=== PATIENT | female | born 1980 | race African-American/Black ===

== ENCOUNTER 2022-02-09 11:53 | Emergency (ER) | payer OTHER, SELFPAY ==
[2022-02-09] VITALS (8 sets, daily range): BP systolic 106–133; BP diastolic 48–78; PULSE 76–99; RESP 14–18; TEMP 36.7; O2SAT 98–100; BMI 36.8
--- NOTE | ~2022-02-09 | XR_ITS ---
Indication: Question osteomyelitis EXAMINATION: Bilateral tib-fib this. 2 views of the right tib-fib does not demonstrate evidence for bony erosion. The tib-fib bone is felt to be intact. No suspicious periosteal change. 2 views of left tib-fib demonstrate no suspicious bony finding. No periosteal change. No bony erosion. No convincing evidence for soft tissue air XR/XR tibia fibula RT 2V IMPRESSION: No bony finding left or right tib-fib.
--- NOTE | ~2022-02-09 | US_ITS ---
EXAMINATION: US VENOUS ULTRASOUND WITH DOPPLER LOWER EXTREMITY, BILATERAL CLINICAL INFORMATION: Pain swelling in the legs with elevated d-dimer COMPARISON: None TECHNIQUE: Ultrasound of the deep veins is performed from the hip to the calf with compression sonography and color and pulse Doppler assessment. Spectral analysis with color-flow imaging is performed. FINDINGS: Exam is significantly limited due to patient body habitus. RIGHT: There is normal venous compression and respiratory variation and augmented flow. The visualized common femoral vein, superficial femoral vein, profunda femoral vein, popliteal vein shows no evidence of deep venous thrombosis. There is no significant popliteal fossa cyst. The right peroneal vein is not seen in this patient. LEFT: There is normal venous compression and respiratory variation and augmented flow. The visualized common femoral vein, superficial femoral vein, profunda femoral vein, popliteal vein, and the trifurcation region shows no evidence of deep venous thrombosis. There is no significant popliteal fossa cyst. If the patient's symptoms persist, followup ultrasound in 5 days 7 days might be of value to exclude proximal propagation from a non-visualized calf vein. US/US venous duplex LE BI IMPRESSION: No thrombus is seen bilateral lower extremities though again exam is significantly limited from patient body habitus. It should be noted the right peroneal vein is not visualized.. Correlation needs to be made clinically.
--- NOTE | ~2022-02-09 | XR_ITS ---
Indication: Question osteomyelitis EXAMINATION: Bilateral tib-fib this. 2 views of the right tib-fib does not demonstrate evidence for bony erosion. The tib-fib bone is felt to be intact. No suspicious periosteal change. 2 views of left tib-fib demonstrate no suspicious bony finding. No periosteal change. No bony erosion. No convincing evidence for soft tissue air XR/XR tibia fibula LT 2V IMPRESSION: No bony finding left or right tib-fib.
--- NOTE | ~2022-02-09 | XR_ITS ---
EXAMINATION: XR CHEST CLINICAL INFORMATION: Dyspnea. COMPARISON: None TECHNIQUE: 2 views of the chest were obtained. FINDINGS: Normal appearance of the cardiomediastinal silhouette. EKG wires overlie the chest. No focal airspace opacities, pleural effusions or pneumothorax. No acute osseous abnormalities. The visualized upper abdomen is within normal limits. XR/XR chest 2V IMPRESSION: No acute cardiopulmonary findings.
--- NOTE | ~2022-02-09 | CT_ITS ---
EXAMINATION: CT ANGIOGRAM OF THE CHEST WITH AND WITHOUT CONTRAST (CT PULMONARY ANGIOGRAM FOR PE) CLINICAL INFORMATION: Reason for Exam dyspnea, elevated ddimer COMPARISON: None TECHNIQUE: Prior to contrast administration, noncontrast localization images were obtained. Subsequently, multidetector volumetric imaging was performed from the thoracic inlet to below the diaphragms following the administration of 80 mL Omnipaque 350 intravenous contrast. No contrast reaction reported Sagittal, coronal, and MIP oblique sagittal reformatted images were obtained on the CT workstation, uploaded to PACS, and reviewed. This CT examination was performed using dose optimization techniques as appropriate, variously including the following: *Automated exposure control *Adjustment of mA and/or kV according to patient size (this includes techniques or standardized protocols for targeted exams where dose is matched to indication/reason for exam; i.e. extremities or head) *Use of iterative reconstruction technique Total exam dose-length product 369 mGy-cm FINDINGS: QUALITY OF STUDY/CONTRAST BOLUS: Satisfactory. PULMONARY ARTERIES: No central or segmental pulmonary emboli. THORACIC AORTA: No aneurysm or dissection. LUNG: The lungs are well-expanded without any acute consolidation or nodules. There is minimal atelectatic changes in the lingula. PLEURA: No pleural effusion or pneumothorax. MEDIASTINUM: The heart size is normal. There is no pericardial effusion. Suspect right hilar and subcarinal lymph node. No evidence of septal bowing or right heart strain. CHEST WALL/AXILLA: There are bilateral abnormal-sized lymph nodes in the axilla. There are bilateral moderate sized breast masses.. OSSEOUS STRUCTURES: No acute or suspicious osseous abnormality. UPPER ABDOMEN: The liver is diffusely attenuated without any focal lesion. Visualized spleen, tail of pancreas and bilateral adrenal glands are unremarkable. No reflux of contrast into the hepatic veins to suggest elevated right heart pressures. CT/CT angio chest PE protocol IMPRESSION: No evidence of PE. No evidence of aortic dissection or aneurysm. Bilateral moderate sized breast masses with abnormal size axillary lymph nodes.. Suspect right hilar lymph nodes. Recommend a mammogram and/or ultrasound exam. VTE: Negative
[2022-02-09 14:05] LABS: D Dimer High Sensitivity 356 NG/ML
--- NOTE | 2022-02-09 15:15 | ED_ITS ---
HPI - General Adult General Chief complaint: General Medical <SHERMAN De Oliveira Last Filed: 02/09/22 17:52> Stated complaint: legs swollen <SHERMAN De Oliveira Last Filed: 02/09/22 17:52> Time Seen by Provider: 02/09/22 15:10 <SHERMAN De Oliveira Last Filed: 02/09/22 17:52> Source: patient <SHERMAN De Oliveira Last Filed: 02/09/22 17:52> Mode of arrival: ambulatory <SHERMAN De Oliveira Last Filed: 02/09/22 17:52> Limitations: no limitations <SHERMAN De Oliveira Last Filed: 02/09/22 17:52> History of Present Illness HPI narrative: 41-year-old transgender female on estrogen and spironolactone presents for 1 month of bilateral leg swelling and pain. States her legs have been swollen and painful, 8/10 pain. After 1 week of leg swelling, patient started spironolactone for the last 3 weeks, hoping it would help reduce her leg swelling but it did not. Patient had COVID in July 2021, and has had wheezing and needing to use inhaler after COVID. Patient feels mildly short of breath. No chest pain. No dysuria, urinary frequency urgency, no cough, no upper respiratory symptoms, no fever, no abdominal pain, no nausea, vomiting, or diarrhea. Patient is vaccinated for COVID. <SHERMAN De Oliveira Last Filed: 02/09/22 17:52> Onset (ago): month(s) (1) <SHERMAN De Oliveira Last Filed: 02/09/22 17:52> Location: lower extremity <SHERMAN De Oliveira Last Filed: 02/09/22 17:52> Severity: moderate <SHERMAN De Oliveira Last Filed: 02/09/22 17:52> Severity scale (1-10): 8 <SHERMAN De Oliveira Last Filed: 02/09/22 17:52> Quality: aching <SHERMAN De Oliveira Last Filed: 02/09/22 17:52> Pain Consistency: constant <SHERMAN De Oliveira Last Filed: 02/09/22 17:52> Relieving factors: none <SHERMAN De Oliveira Last Filed: 02/09/22 17:52> Exacerbating factors: none <SHERMAN De Oliveira Last Filed: 02/09/22 17:52> Associated symptoms: shortness of breath <SHERMAN De Oliveira Last Filed: 02/09/22 17:52> Treatments prior to arrival: other (spironolactone) <SHERMAN De Oliveira Last Filed: 02/09/22 17:52> Related Data Home medications: Previous Rx's Medication Instructions Recorded cephalexin 500 mg capsule 500 mg PO QID 7 Days #28 cap 02/09/22 doxycycline hyclate 100 mg capsule 100 mg PO BID 7 Days #14 cap 02/09/22 ketorolac 10 mg tablet 10 mg PO TID PRN 5 Days #20 tab 02/09/22 <SHERMAN De Oliveira Last Filed: 02/09/22 17:52> Allergies/adverse reactions: Allergies Allergy/AdvReac Type Severity Reaction Status Date / Time No Known Allergies Allergy Verified 02/09/22 12:02 <SHERMAN De Oliveira Last Filed: 02/09/22 17:52> Review of Systems Constitutional: Constitutional: Denies body ache(s), Denies chills, Denies fatigue, Denies fever(s) and Denies headache(s) <SHERMAN De Oliveira Last Filed: 02/09/22 17:52> Eyes: Eyes: Denies blurry vision, Denies change in vision and Denies diplopia <SHERMAN De Oliveira Last Filed: 02/09/22 17:52> ENT: Denies dizziness, Denies otalgia, Denies headache(s), Denies nasal congestion and Denies sore throat <SHERMAN De Oliveira Last Filed: 02/09/22 17:52> Cardiovascular: Cardiovascular: Denies chest pain, Denies chest pain at rest, Denies Epigastric Pain and Reports dyspnea <SHERMAN De Oliveira Last Filed: 02/09/22 17:52> Respiratory: Respiratory: Denies chest congestion, Denies cough, Denies pain on inspiration, Denies pain with cough and Reports dyspnea <SHERMAN Saldana Last Filed: 02/09/22 17:52> Gastrointestinal: Gastrointestinal: Denies abdominal pain, Denies melena, Denies coffee ground emesis, Denies diarrhea, Denies nausea, Denies vomiting and Denies hematemesis <SHERMAN De Oliveira Last Filed: 02/09/22 17:52> Genitourinary: Genitourinary: Denies dysuria, Denies urinary incontinence and Denies urinary hesitancy <SHERMAN De Oliveira Last Filed: 02/09/22 17:52> Musculoskeletal: Comments: Bilateral leg pain and swelling <SHERMAN De Oliveira Last Filed: 02/09/22 17:52> Integumentary/Breasts: Skin/Breast: Reports swelling, Reports erythema and Reports skin swelling <SHERMAN De Oliveira Last Filed: 02/09/22 17:52> Neurologic: Denies Abnormal speech present, Denies dizziness, Denies headache(s) and Denies Sensory deficit (Neuro) <SHERMAN De Oliveira Last Filed: 02/09/22 17:52> Endocrine: Endocrine: Denies fatigue <SHERMAN De Oliveira Last Filed: 02/09/22 17:52> [facility] Social History Social History: Social History Alcohol intake: never Patient Tobacco Use Status: Current everyday Tobacco user Use of substances other than those prescribed or required for medical reasons: No Advance Directives: No Advance Directives Information Provided: No <SHERMAN De Oliveira Last Filed: 02/09/22 17:52> Physical Exam ED Vital Signs: Vital Signs - 24 hr 02/09/22 11:57 02/09/22 16:33 02/09/22 18:49 Temperature 98.1 F Pulse Rate 99 80 76 Respiratory Rate 18 18 18 Blood Pressure 133/78 115/73 106/63 Pulse Oximetry 100 98 100 02/09/22 19:34 02/09/22 19:50 02/09/22 19:51 Temperature Pulse Rate 79 79 Respiratory Rate 14 15 15 Blood Pressure 126/77 126/77 Pulse Oximetry 99 02/09/22 20:57 02/09/22 21:26 Temperature Pulse Rate 81 77 Respiratory Rate 15 14 Blood Pressure 108/48 L Pulse Oximetry 100 BMI result Body Mass Index 36.8 <SHERMAN De Oliveira Last Filed: 02/09/22 17:52> Vital Signs - 24 hr 02/09/22 11:57 02/09/22 16:33 02/09/22 18:49 Temperature 98.1 F Pulse Rate 99 80 76 Respiratory Rate 18 18 18 Blood Pressure 133/78 115/73 106/63 Pulse Oximetry 100 98 100 02/09/22 19:34 02/09/22 19:50 02/09/22 19:51 Temperature Pulse Rate 79 79 Respiratory Rate 14 15 15 Blood Pressure 126/77 126/77 Pulse Oximetry 99 02/09/22 20:57 02/09/22 21:26 Temperature Pulse Rate 81 77 Respiratory Rate 15 14 Blood Pressure 108/48 L Pulse Oximetry 100 BMI result Body Mass Index 36.8 <SHERMAN Vogel - Last Filed: 02/09/22 21:28> Const General: alert and awake <SHERMAN De Oliveira - Last Filed: 02/09/22 17:52> Nutritional Appearance: obese centrally obese <SHERMAN De Oliveira Last Filed: 02/09/22 17:52> Orientation/consciousness: patient oriented x3 <SHERMAN De Oliveira - Last Filed: 02/09/22 17:52> Limitations: no limitations <SHERMAN De Oliveira Last Filed: 02/09/22 17:52> H[place]UT Head: Yes normal to inspection, Yes No palpable skull fracture present, Yes normocephalic and Yes atraumatic <SHREMAN De Oliveira Last Filed: 02/09/22 17:52> General nose exam: Normal external nose present <SHERMAN De Oliveira Last Filed: 02/09/22 17:52> Face and sinus: Yes normal facial exam <SHERMAN De Oliveira Last Filed: 02/09/22 17:52> Mouth: Normal oral and palatal mucosa present <SHERMAN De Oliveira Last Filed: 02/09/22 17:52> Throat: Yes posterior oropharynx normal <SHERMAN De Oliveira Last Filed: 02/09/22 17:52> Eyes Sclerae: sclerae normal <SHERMAN De Oliveira Last Filed: 02/09/22 17:52> Pupils: Equal, round and reactive pupils present <SHERMAN De Oliveira - Last Filed: 02/09/22 17:52> EOM: EOMs intact bilaterally <Ning Sutton [facility] Last Filed: 02/09/22 17:52> Neck Neck: Yes normal visual inspection, Yes full ROM, Yes no lymphadenopathy, Yes no meningeal signs, Yes trachea midline and Yes supple <Ning Sutton [facility] Last Filed: 02/09/22 17:52> Resp Effort & Inspection: normal respiratory effort and able to speak in complete sentences <Ning Sutton [facility] Last Filed: 02/09/22 17:52> Auscultation: no rales, no rhonchi, wheezes (scatterred) expiratory wheezes and throughout and lung sounds not diminished <Ning Sutton [facility] Last Filed: 02/09/22 17:52> Cardio Rate: regular rate <Ning Sutton [facility] Last Filed: 02/09/22 17:52> Rhythm: regular rhythm <Ning Sutton [facility] Last Filed: 02/09/22 17:52> Heart sounds: S1 normal heart sound present and S2 normal heart sound present <Ning Sutton [facility] Last Filed: 02/09/22 17:52> GI Inspection: Yes obesity <Ning Sutton [facility] Last Filed: 02/09/22 17:52> Palpation (GI): Soft to palpation, nontender, no guarding and not rigid <Ning Sutton [facility] Last Filed: 02/09/22 17:52> Percussion: Yes normal to percussion <Ning Sutton [facility] Last Filed: 02/09/22 17:52> Auscultation: normal bowel sounds <Ning Sutton [facility] Last Filed: 02/09/22 17:52> General: Yes no CVA tenderness <Ning Sutton [facility] Last Filed: 02/09/22 17:52> Back/Spine/Pelvis Back: no CVA tenderness <Ning Sutton [facility] Last Filed: 02/09/22 17:52> Skin Other: Shiny Hernandez skin, on bilateral lower extremities, left leg has some anterior abrasions and is more red and warm than right leg. <Ning Sutton [facility] Last Filed: 02/09/22 17:52> General skin exam: erythema and induration <SHERMAN De Oliveira - Last Filed: 02/09/22 17:52> Neuro General: patient oriented x3, tone normal and no meningeal signs <SHERMAN De Oliveira - Last Filed: 02/09/22 17:52> Cranial nerves: Yes Equal, round and reactive pupils present <SHERMAN De Oliveira - Last Filed: 02/09/22 17:52> Cognition (Neuro): normal cognition <SHERMAN De Oliveira - Last Filed: 02/09/22 17:52> Speech: No Abnormal speech present <SHERMAN De Oliveira - Last Filed: 02/09/22 17:52> Gait exam (Neuro): Normal gait present <SHERMAN De Oliveira - Last Filed: 02/09/22 17:52> Motor exam (neuro): 5/5 motor strength present throughout <SHERMAN De Oliveira - Last Filed: 02/09/22 17:52> Sensory Exam: No Sensory deficit (Neuro) <SHERMAN De Oliveira - Last Filed: 02/09/22 17:52> Extrem Right lower extremity: normal capillary refill and lower leg Details: tenderness, pitting edema Details: 2+ and warmth Location: of the mid lower leg; Negative for no ecchymosis and no crepitus; No no cyanosis <SHERMAN De Oliveira - Last Filed: 02/09/22 17:52> Left lower extremity: normal capillary refill and lower leg Details: erythema, tenderness, pitting edema Details: 2+, abrasion mid lower leg anterior and warmth; No no cyanosis <SHERMAN De Oliveira Last Filed: 02/09/22 17:52> Psych Appearance: grossly normal <SHERMAN De Oliveira Last Filed: 02/09/22 17:52> Mental Status: mental status grossly normal <SHERMAN De Oliveira - Last Filed: 02/09/22 17:52> Speech and movement: Normal speech and movement present <SHERMAN De Oliveira Last Filed: 02/09/22 17:52> Affect: normal affect <SHERMAN De Oliveira Last Filed: 02/09/22 17:52> Course Course Course Narrative: 41-year-old transgender female presents with 1 week of bilateral lower extremities swelling, pain, and mild shortness of breath. Patient is on estrogen. On exam, patient has mild scattered wheezes on lung auscultation, abdomen soft nontender, bilateral lower extremities have +2 pitting edema, shiny skin, induration, both are warm and erythematous, left anterior loaiza has abrasions and left calf is more erythematous and warm than right calf. CBC shows no leukocytosis, chemistries unremarkable, patient has a elevated D- dimer at 356. Urine is negative for infection Patient is at risk for thromboembolism given her estrogen use. In addition, D- dimer is elevated. Will get bilateral lower extremity ultrasound, CTA chest to rule out DVT and PE. <SHERMAN De Oliveira - Last Filed: 02/09/22 17:52> Reevaluation(s) Reevaluation #1: Patient is feeling less short of breath after her albuterol treatment. Her chest x-ray looks normal to me, it is not officially read yet. Still shirley iting BNP and troponin. Patient's labs hemolyzed and she needs to be redrawn for trop and BNP Her IV infiltrated so she did not get much morphine. EKG shows normal sinus node ischemic changes. Patient is COVID negative. Ordered Tylenol for pain. Signed pt out to JIMENA Buatista Awaiting ultrasound and CTA results, LFT, BNP, and troponin, as weel as official CXR read <SHERMAN De Oliveira - Last Filed: 02/09/22 17:52> Reevaluation #2: Patient bilateral ultrasound came back negative blood clots. Bilateral lower extremity x-ray negative for osteomyelitis. Chest CTA came back negative for pulmonary embolus. Bilateral lower extremities examined and they are warm and erythematous to indicate cellulitis. Negative for any white blood cell count or elevation in ESR/CRP. Negative for elevated BNP to indicate congestive heart failure. Patient will be discharged with antibiotics and pain medication. <SHERMAN Vogel - Last Filed: 02/09/22 21:28> Time: 21:17 <SHERMAN Vogel - Last Filed: 02/09/22 21:28> Medical Decision Making Lab Data Result diagrams: : 02/09/22 15:10 02/09/22 15:10 <SHERMAN De Oliveira Last Filed: 02/09/22 17:52> Labs: Lab Results 02/09/22 02/09/22 02/09/22 Range/Units 13:50 15:10 15:10 WBC 7.3 (4.8-10.8) X10*3/uL RBC 3.83 L (4.20-5.50) X10*6/uL Hgb 11.5 L (12.0-16.0) g/dl Hct 33.4 L (37.0-47.0) % MCV 87.2 (80.0-98.0) fL MCH 30.0 (27.0-33.0) pg MCHC 34.4 (31.0-35.0) g/dl RDW 13.3 (11.0-16.0) % Plt Count 268 (160-400) X10*3/uL MPV 8.7 L (9.4-12.3) fL Immature Gran % (Auto) 0.3 (0.0-0.4) % Neut % (Auto) 52.9 (45-73) % Lymph % (Auto) 24.8 (20-40) % [place] % (Auto) 9.4 (2-11) % Eos % (Auto) 11.9 H (0-4) % Baso % (Auto) 0.7 (0-2) % Lymph # (Auto) 1.8 (1.2-4.9) X10*3/uL [place] # (Auto) 0.7 (0.1-1.2) X10*3/uL Eos # (Auto) 0.9 H (0.0-0.4) X10*3/uL Baso # (Auto) 0.1 (0.0-0.2) X10*3/uL Abs Immat Gran (auto) 0.02 (0.00-0.03) X10*3/uL Absolute Neuts (auto) 3.9 (2.0-8.3) x10*3/uL Absolute Nucleated RBC 0.000 (0.0-0.012) X10*3/uL Nucleated RBC % (auto) 0.0 (0.0-0.2) /100WBC ESR (0-20) MM/HR D-Dimer High Sensitivty 356 NG/ML Sodium 136 (135-145) mmol/L Potassium 4.2 (3.3-5.1) mmol/L Chloride 105 (96-108) mmol/L Carbon Dioxide 25 (22-29) mmol/L Anion Gap 10 L (12-20) BUN 10 (9-16) mg/dL Creatinine 0.78 (0.5-1.4) mg/dL Estim Creat Clear Calc 142.5 Estimated GFR > 60 Random Glucose 91 (60-115) mg/dL Calcium 9.3 (8.4-10.2) mg/dL Total Bilirubin AST ALT Alkaline Phosphatase Troponin I High Sens (<3.5-17.0) ng/L C-Reactive Protein 1.62 H (< or = 0.50) mg/dL B-Natriuretic Peptide (<100) pg/mL Total Protein Albumin Urine Color Urine Appearance Urine pH (5.0-8.0) Ur Specific [place] (1.005-1.025) Urine Protein (NEG-TRACE) MG/DL Urine Glucose (UA) (NEG) MG/DL Urine Ketones (NEG) MG/DL Urine Blood (NEG) Urine Nitrite (NEG) Ur Leukocyte Esterase (NEG) COVID-19 (SUSAN) (Negative) COVID-19 Clin Com 02/09/22 02/09/22 02/09/22 Range/Units 15:10 15:13 16:32 WBC (4.8-10.8) X10*3/uL RBC (4.20-5.50) X10*6/uL Hgb (12.0-16.0) g/dl Hct (37.0-47.0) % MCV (80.0-98.0) fL MCH (27.0-33.0) pg MCHC (31.0-35.0) g/dl RDW (11.0-16.0) % Plt Count (160-400) X10*3/uL MPV (9.4-12.3) fL Immature Gran % (Auto) (0.0-0.4) % Neut % (Auto) (45-73) % Lymph % (Auto) (20-40) % [place] % (Auto) (2-11) % Eos % (Auto) (0-4) % Baso % (Auto) (0-2) % Lymph # (Auto) (1.2-4.9) X10*3/uL [place] # (Auto) (0.1-1.2) X10*3/uL Eos # (Auto) (0.0-0.4) X10*3/uL Baso # (Auto) (0.0-0.2) X10*3/uL Abs Immat Gran (auto) (0.00-0.03) X10*3/uL Absolute Neuts (auto) (2.0-8.3) x10*3/uL Absolute Nucleated RBC (0.0-0.012) X10*3/uL Nucleated RBC % (auto) (0.0-0.2) /100WBC ESR 18 (0-20) MM/HR D-Dimer High Sensitivty NG/ML Sodium Cancelled (135-145) mmol/L Potassium Cancelled (3.3-5.1) mmol/L Chloride Cancelled (96-108) mmol/L Carbon Dioxide Cancelled (22-29) mmol/L Anion Gap Cancelled (12-20) BUN Cancelled (9-16) mg/dL Creatinine Cancelled (0.5-1.4) mg/dL Estim Creat Clear Calc Cancelled Estimated GFR Cancelled Random Glucose Cancelled (60-115) mg/dL Calcium Cancelled (8.4-10.2) mg/dL Total Bilirubin Cancelled AST Cancelled ALT Cancelled Alkaline Phosphatase Cancelled Troponin I High Sens (<3.5-17.0) ng/L C-Reactive Protein (< or = 0.50) mg/dL B-Natriuretic Peptide (<100) pg/mL Total Protein Cancelled Albumin Cancelled Urine Color YELLOW Urine Appearance CLEAR Urine pH 6.5 (5.0-8.0) Ur Specific [place] 1.015 (1.005-1.025) Urine Protein NEG (NEG-TRACE) MG/DL Urine Glucose (UA) NEG (NEG) MG/DL Urine Ketones NEG (NEG) MG/DL Urine Blood NEG (NEG) Urine Nitrite NEG (NEG) Ur Leukocyte Esterase NEG (NEG) COVID-19 (SUSAN) (Negative) COVID-19 Clin Com 02/09/22 02/09/22 Range/Units 16:32 19:02 WBC (4.8-10.8) X10*3/uL RBC (4.20-5.50) X10*6/uL Hgb (12.0-16.0) g/dl Hct (37.0-47.0) % MCV (80.0-98.0) fL MCH (27.0-33.0) pg MCHC (31.0-35.0) g/dl RDW (11.0-16.0) % Plt Count (160-400) X10*3/uL MPV (9.4-12.3) fL Immature Gran % (Auto) (0.0-0.4) % Neut % (Auto) (45-73) % Lymph % (Auto) (20-40) % [place] % (Auto) (2-11) % Eos % (Auto) (0-4) % Baso % (Auto) (0-2) % Lymph # (Auto) (1.2-4.9) X10*3/uL [place] # (Auto) (0.1-1.2) X10*3/uL Eos # (Auto) (0.0-0.4) X10*3/uL Baso # (Auto) (0.0-0.2) X10*3/uL Abs Immat Gran (auto) (0.00-0.03) X10*3/uL Absolute Neuts (auto) (2.0-8.3) x10*3/uL Absolute Nucleated RBC (0.0-0.012) X10*3/uL Nucleated RBC % (auto) (0.0-0.2) /100WBC ESR (0-20) MM/HR D-Dimer High Sensitivty NG/ML Sodium (135-145) mmol/L Potassium (3.3-5.1) mmol/L Chloride (96-108) mmol/L Carbon Dioxide (22-29) mmol/L Anion Gap (12-20) BUN (9-16) mg/dL Creatinine (0.5-1.4) mg/dL Estim Creat Clear Calc Estimated GFR Random Glucose (60-115) mg/dL Calcium (8.4-10.2) mg/dL Total Bilirubin AST ALT Alkaline Phosphatase Troponin I High Sens < 3.5 (<3.5-17.0) ng/L C-Reactive Protein (< or = 0.50) mg/dL B-Natriuretic Peptide 21 (<100) pg/mL Total Protein Albumin Urine Color Urine Appearance Urine pH (5.0-8.0) Ur Specific [place] (1.005-1.025) Urine Protein (NEG-TRACE) MG/DL Urine Glucose (UA) (NEG) MG/DL Urine Ketones (NEG) MG/DL Urine Blood (NEG) Urine Nitrite (NEG) Ur Leukocyte Esterase (NEG) COVID-19 (SUSAN) Negative (Negative) COVID-19 Clin Com See Note <SHERMAN De Oliveira - Last Filed: 02/09/22 17:52> Lab Results 02/09/22 02/09/22 02/09/22 Range/Units 13:50 15:10 15:10 WBC 7.3 (4.8-10.8) X10*3/uL RBC 3.83 L (4.20-5.50) X10*6/uL Hgb 11.5 L (12.0-16.0) g/dl Hct 33.4 L (37.0-47.0) % MCV 87.2 (80.0-98.0) fL MCH 30.0 (27.0-33.0) pg MCHC 34.4 (31.0-35.0) g/dl RDW 13.3 (11.0-16.0) % Plt Count 268 (160-400) X10*3/uL MPV 8.7 L (9.4-12.3) fL Immature Gran % (Auto) 0.3 (0.0-0.4) % Neut % (Auto) 52.9 (45-73) % Lymph % (Auto) 24.8 (20-40) % [place] % (Auto) 9.4 (2-11) % Eos % (Auto) 11.9 H (0-4) % Baso % (Auto) 0.7 (0-2) % Lymph # (Auto) 1.8 (1.2-4.9) X10*3/uL [place] # (Auto) 0.7 (0.1-1.2) X10*3/uL Eos # (Auto) 0.9 H (0.0-0.4) X10*3/uL Baso # (Auto) 0.1 (0.0-0.2) X10*3/uL Abs Immat Gran (auto) 0.02 (0.00-0.03) X10*3/uL Absolute Neuts (auto) 3.9 (2.0-8.3) x10*3/uL Absolute Nucleated RBC 0.000 (0.0-0.012) X10*3/uL Nucleated RBC % (auto) 0.0 (0.0-0.2) /100WBC ESR (0-20) MM/HR D-Dimer High Sensitivty 356 NG/ML Sodium 136 (135-145) mmol/L Potassium 4.2 (3.3-5.1) mmol/L Chloride 105 (96-108) mmol/L Carbon Dioxide 25 (22-29) mmol/L Anion Gap 10 L (12-20) BUN 10 (9-16) mg/dL Creatinine 0.78 (0.5-1.4) mg/dL Estim Creat Clear Calc 142.5 Estimated GFR > 60 Random Glucose 91 (60-115) mg/dL Calcium 9.3 (8.4-10.2) mg/dL Total Bilirubin AST ALT Alkaline Phosphatase Troponin I High Sens (<3.5-17.0) ng/L C-Reactive Protein 1.62 H (< or = 0.50) mg/dL B-Natriuretic Peptide (<100) pg/mL Total Protein Albumin Urine Color Urine Appearance Urine pH (5.0-8.0) Ur Specific [place] (1.005-1.025) Urine Protein (NEG-TRACE) MG/DL Urine Glucose (UA) (NEG) MG/DL Urine Ketones (NEG) MG/DL Urine Blood (NEG) Urine Nitrite (NEG) Ur Leukocyte Esterase (NEG) COVID-19 (SUSAN) (Negative) COVID-19 Clin Com 02/09/22 02/09/22 02/09/22 Range/Units 15:10 15:13 16:32 WBC (4.8-10.8) X10*3/uL RBC (4.20-5.50) X10*6/uL Hgb (12.0-16.0) g/dl Hct (37.0-47.0) % MCV (80.0-98.0) fL MCH (27.0-33.0) pg MCHC (31.0-35.0) g/dl RDW (11.0-16.0) % Plt Count (160-400) X10*3/uL MPV (9.4-12.3) fL Immature Gran % (Auto) (0.0-0.4) % Neut % (Auto) (45-73) % Lymph % (Auto) (20-40) % [place] % (Auto) (2-11) % Eos % (Auto) (0-4) % Baso % (Auto) (0-2) % Lymph # (Auto) (1.2-4.9) X10*3/uL [place] # (Auto) (0.1-1.2) X10*3/uL Eos # (Auto) (0.0-0.4) X10*3/uL Baso # (Auto) (0.0-0.2) X10*3/uL Abs Immat Gran (auto) (0.00-0.03) X10*3/uL Absolute Neuts (auto) (2.0-8.3) x10*3/uL Absolute Nucleated RBC (0.0-0.012) X10*3/uL Nucleated RBC % (auto) (0.0-0.2) /100WBC ESR 18 (0-20) MM/HR D-Dimer High Sensitivty NG/ML Sodium Cancelled (135-145) mmol/L Potassium Cancelled (3.3-5.1) mmol/L Chloride Cancelled (96-108) mmol/L Carbon Dioxide Cancelled (22-29) mmol/L Anion Gap Cancelled (12-20) BUN Cancelled (9-16) mg/dL Creatinine Cancelled (0.5-1.4) mg/dL Estim Creat Clear Calc Cancelled Estimated GFR Cancelled Random Glucose Cancelled (60-115) mg/dL Calcium Cancelled (8.4-10.2) mg/dL Total Bilirubin Cancelled AST Cancelled ALT Cancelled Alkaline Phosphatase Cancelled Troponin I High Sens (<3.5-17.0) ng/L C-Reactive Protein (< or = 0.50) mg/dL B-Natriuretic Peptide (<100) pg/mL Total Protein Cancelled Albumin Cancelled Urine Color YELLOW Urine Appearance CLEAR Urine pH 6.5 (5.0-8.0) Ur Specific [place] 1.015 (1.005-1.025) Urine Protein NEG (NEG-TRACE) MG/DL Urine Glucose (UA) NEG (NEG) MG/DL Urine Ketones NEG (NEG) MG/DL Urine Blood NEG (NEG) Urine Nitrite NEG (NEG) Ur Leukocyte Esterase NEG (NEG) COVID-19 (SUSAN) (Negative) COVID-19 Clin Com 02/09/22 02/09/22 Range/Units 16:32 19:02 WBC (4.8-10.8) X10*3/uL RBC (4.20-5.50) X10*6/uL Hgb (12.0-16.0) g/dl Hct (37.0-47.0) % MCV (80.0-98.0) fL MCH (27.0-33.0) pg MCHC (31.0-35.0) g/dl RDW (11.0-16.0) % Plt Count (160-400) X10*3/uL MPV (9.4-12.3) fL Immature Gran % (Auto) (0.0-0.4) % Neut % (Auto) (45-73) % Lymph % (Auto) (20-40) % [place] % (Auto) (2-11) % Eos % (Auto) (0-4) % Baso % (Auto) (0-2) % Lymph # (Auto) (1.2-4.9) X10*3/uL [place] # (Auto) (0.1-1.2) X10*3/uL Eos # (Auto) (0.0-0.4) X10*3/uL Baso # (Auto) (0.0-0.2) X10*3/uL Abs Immat Gran (auto) (0.00-0.03) X10*3/uL Absolute Neuts (auto) (2.0-8.3) x10*3/uL Absolute Nucleated RBC (0.0-0.012) X10*3/uL Nucleated RBC % (auto) (0.0-0.2) /100WBC ESR (0-20) MM/HR D-Dimer High Sensitivty NG/ML Sodium (135-145) mmol/L Potassium (3.3-5.1) mmol/L Chloride (96-108) mmol/L Carbon Dioxide (22-29) mmol/L Anion Gap (12-20) BUN (9-16) mg/dL Creatinine (0.5-1.4) mg/dL Estim Creat Clear Calc Estimated GFR Random Glucose (60-115) mg/dL Calcium (8.4-10.2) mg/dL Total Bilirubin AST ALT Alkaline Phosphatase Troponin I High Sens < 3.5 (<3.5-17.0) ng/L C-Reactive Protein (< or = 0.50) mg/dL B-Natriuretic Peptide 21 (<100) pg/mL Total Protein Albumin Urine Color Urine Appearance Urine pH (5.0-8.0) Ur Specific [place] (1.005-1.025) Urine Protein (NEG-TRACE) MG/DL Urine Glucose (UA) (NEG) MG/DL Urine Ketones (NEG) MG/DL Urine Blood (NEG) Urine Nitrite (NEG) Ur Leukocyte Esterase (NEG) COVID-19 (SUSAN) Negative (Negative) COVID-19 Clin Com See Note <SHERMAN Vogel - Last Filed: 02/09/22 21:28> ECG Data Interpretation: EKG shows normal sinus at a rate of 74, IL interval 176, QRS 82, QTC 432, normal axis, no ST depressions or elevations, no T-wave abnormalities. <SHERMAN De Oliveira - Last Filed: 02/09/22 17:52> Discharge Plan Discharge Clinical Impression: Leg swelling, Cellulitis <SHERMAN De Oliveira - Last Filed: 02/09/22 17:52> Patient Disposition: Home, Self-Care <SHERMAN De Oliveira - Last Filed: 02/09/22 17:52> Instructions: Cellulitis (DC) <SHERMAN De Oliveira - Last Filed: 02/09/22 17:52> Additional Instructions: You're images and blood work came back negative for heart failure, heart attack, pulmonary embolus, or DVT. History physical exam indicates cellulitis. You will be discharged with antibiotics and pain medication. Please follow-up with primary care provider <SHERMAN De Oliveira - Last Filed: 02/09/22 17:52> Prescriptions: New cephalexin 500 mg capsule 500 mg PO QID 7 Days Qty: 28 0RF doxycycline hyclate 100 mg capsule 100 mg PO BID 7 Days Qty: 14 0RF ketorolac 10 mg tablet 10 mg PO TID PRN (Reason: pain) 5 Days Qty: 20 0RF Rx Instructions: Patient received Toradol 30 mg IV in the ED <SHERMAN De Oliveira - Last Filed: 02/09/22 17:52> Stand Alone Forms: Work/School Release <SHERMAN De Oliveira - Last Filed: 02/09/22 17:52> Discharge Date/Time: 02/09/22 21:38 <SHERMAN De Oliveira - Last Filed: 02/09/22 17:52> Print Language: Faroese <SHERMAN De Oliveira - Last Filed: 02/09/22 17:52>
[2022-02-09 15:17] LABS: MANUAL DIFF FLAG NO
[2022-02-09 15:20] LABS: Appearance Urine CLEAR; Color Urine YELLOW; Glucose Urine UA NEG (NEG); Leukocyte Esterase Urine NEG (NEG); Nitrite Urine NEG (NEG); PH 6.5 (5.0-8.0); Specific Gravity - Urine 1.015 (1.005-1.025); Urine Blood NEG (NEG); Urine Ketones NEG (NEG); Urine Protein NEG (NEG-TRACE)
[2022-02-09 15:22] LABS: Basophils Absolute Auto 0.1 X10*3/uL (0.0-0.2); Basophils Percent Auto 0.7 % (0-2); Eosinophils Absolute Auto 0.9 X10*3/uL (0.0-0.4); Eosinophils Percent Auto 11.9 % (0-4); Hematocrit 33.4 % (37.0-47.0); Hemoglobin 11.5 g/dl (12.0-16.0); Imm Gran Abs Auto 0.02 X10*3/uL (0.00-0.03); Imm Gran Pct Auto 0.3 % (0.0-0.4); Lymphocytes Absolute Auto 1.8 X10*3/uL (1.2-4.9); Lymphocytes Percent Auto 24.8 % (20-40); Mean Corpuscular HGB Conc 34.4 g/dl (31.0-35.0); Mean Corpuscular Volume 87.2 fL (80.0-98.0); Mean Platelet Volume 8.7 fL (9.4-12.3); Monocytes Absolute Auto 0.7 X10*3/uL (0.1-1.2); Monocytes Percent Auto 9.4 % (2-11); Neutrophils Absolute Auto 3.9 x10*3/uL (2.0-8.3); Neutrophils Percent Auto 52.9 % (45-73); Platelet Count 268 X10*3/uL (160-400); Red Blood Count 3.83 X10*6/uL (4.20-5.50); Red Cell Distribution Width 13.3 % (11.0-16.0); White Blood Count 7.3 X10*3/uL (4.8-10.8)
--- NOTE | 2022-02-09 15:32 | ECG_ITS ---
Test Reason : DYSPENA Blood Pressure : / mmHG Vent. Rate : 074 BPM Atrial Rate : 074 BPM P-R Int : 178 ms QRS Dur : 082 ms QT Int : 390 ms P-R-T Axes : 063 020 005 degrees QTc Int : 432 ms Normal sinus rhythm Normal ECG No previous ECGs available Referred By: Ning Sutton Electronically Signed By:YULY ONOFRE MD
[2022-02-09 15:40] LABS: Anion Gap 10 (12-20); Blood Urea Nitrogen 10 mg/dL (9-16); Calcium 9.3 mg/dL (8.4-10.2); Carbon Dioxide 25 mmol/L (22-29); Chloride 105 mmol/L (96-108); Creatinine Clr Calc Pharmacy 142.5; Estimated Glomerular Filt Rate > 60; Glucose Random 91 mg/dL (60-115); Potassium 4.2 mmol/L (3.3-5.1); Sodium 136 mmol/L (135-145)
--- NOTE | 2022-02-09 16:35 | PC.NURSE ---
c.o ble pain and swelling.. FARNSWORTH. taught swelling bLE and painful to touch. no sob noted. nsr on monitor. denies cp
[2022-02-09] MEDS: Morphine Sulfate 4 MG/ML CARTRIDGE IVPUSH ×2 (16:47→19:50)
[2022-02-09] MEDS: 0.9 % Sodium Chloride 1,000 ML 999 ML IV (16:47)
[2022-02-09] MEDS: Albuterol Sulfate 90 MCG 8 GM INHALER 2 PUFF INHALE (16:47)
[2022-02-09 16:58] LABS: COVID-19 Test Negative (Negative)
--- NOTE | 2022-02-09 18:14 | PC.NURSE ---
iv infiltrated at CT. Pt has had mult attempts for a line, now SHERMAN June at bedside with Ultrasound.
[2022-02-09 18:24] LABS: C Reactive Protein 1.62 mg/dL (< or = 0.50)
[2022-02-09 19:05] LABS: Erythrocyte Sedimentation Rate 18 MM/HR (0-20)
[2022-02-09] MEDS: iohexoL 350 MG/ML 100 ML INFUS..BTL IV (19:23)
[2022-02-09 19:27] LABS: B Type Natriuretic Peptide 21 pg/mL (<100); Troponin-I High Sensitivity < 3.5 ng/L (<3.5-17.0)
[2022-02-09] MEDS: Ketorolac Tromethamine 30 MG/ML VIAL IVPUSH (21:24)
== END 2022-02-09 21:38 | disposition home or self-care (01) ==
PROVIDERS: Physician Assistant; Emergency Provider Emergency Medicine
DX: L03.115 Cellulitis of right lower limb (principal); M79.661 Pain in right lower leg; L03.116 Cellulitis of left lower limb; M79.662 Pain in left lower leg; R06.02 Shortness of breath; R60.0 Localized edema; Z20.822 Contact with and (suspected) exposure to COVID-19; F64.0 Transsexualism; F17.200 Nicotine dependence, unspecified, uncomplicated; Z79.890 Hormone replacement therapy
CPT/HCPCS: 36415; 71046; 71275; 73590; 80048; 81003; 83880; 84484; 85025; 85379; 85652; 86140; 87635; 93005; 93970; 96361; 96374; 96375; 96376; 99284; 99285; J1885; J2270; Q9967

== ENCOUNTER 2022-05-26 14:52 | Emergency (ER) | payer OTHER, SELFPAY ==
[2022-05-26 15:12] VITALS: BP 131/86; PULSE 93; RESP 18; TEMP 36.2; O2SAT 97; BMI 36.6
[2022-05-26 15:27] LABS: Appearance Urine CLEAR; Color Urine YELLOW; Glucose Urine UA NEG (NEG); Leukocyte Esterase Urine NEG (NEG); Nitrite Urine NEG (NEG); PH 5.5 (5.0-8.0); Specific Gravity - Urine <= 1.005 (1.005-1.025); Urine Blood NEG (NEG); Urine Ketones NEG (NEG); Urine Protein NEG (NEG-TRACE)
--- NOTE | 2022-05-26 16:02 | ED_ITS ---
HPI - Female Genitourinary General Chief complaint: Urogenital-Female Stated complaint: Requesting urine test Time Seen by Provider: 05/26/22 16:02 History of Present Illness HPI Narrative: Patient comes with the complaint that she thinks her urine is dark and is concerned this could be a sign of a liver problem, she has no stomach pain no problem eating and drinking no fever no jaundice no nausea vomiting or diarrhea Related Data Previous Rx's Medication Instructions Recorded cephalexin 500 mg capsule 500 mg PO QID 7 days #28 caps 02/09/22 doxycycline hyclate 100 mg capsule 100 mg PO BID 7 days #14 caps 02/09/22 ketorolac 10 mg tablet 10 mg PO TID PRN pain 5 days #20 02/09/22 tabs Allergies Allergy/AdvReac Type Severity Reaction Status Date / Time No Known Allergies Allergy Verified 02/09/22 12:02 Review of Systems Review of Systems: Positive for change in urine color Negatives are no fever no chills no dizziness or weakness no fainting no feeling faint no headache no neck pain no chest pain no shortness of breath no abdominal pain no nausea vomiting or diarrhea no dysuria no frequency no blood in the urine no skin rash no jaundice Yes all other systems are reviewed and are negative PMFSH Past Medical History Source: nursing notes reviewed Social History Social History Alcohol intake: never Patient Tobacco Use Status: Current everyday Tobacco user Advance Directives: No Advance Directives Information Provided: No Physical Exam Vital Signs: Vital Signs: Last Vital Signs Temp 97.2 F 05/26/22 15:12 Pulse 93 05/26/22 15:12 Resp 18 05/26/22 15:12 BP 131/86 05/26/22 15:12 Pulse Ox 97 05/26/22 15:12 O2 Del Method 05/26/22 15:12 BMI result Body Mass Index 36.6 General appearance no distress Eyes are anicteric no pallor The pharynx no redness swelling or exudate mucous membranes are moist Neck is supple Chest clear to auscultation bilateral Heart no murmur Abdomen soft nontender Extremities no edema full range of motion x4 Skin no jaundice Course Course Course Narrative: Labs showed minor AST and ALT elevations, otherwise normal no evidence of any liver disfunction ,bilirubin was normal ,urinalysis was normal blood count was normal renal function normal and patient was discharged to follow with primary doctor for further evaluation, and if needed to recheck AST and ALT MDM - Female Genitourinary Lab Data Result diagrams: 05/26/22 16:30 05/26/22 16:30 Labs: Lab Results 05/26/22 05/26/22 05/26/22 Range/Units 15:19 15:19 16:30 WBC 7.8 (4.8-10.8) X10*3/uL RBC 4.25 (4.20-5.50) X10*6/uL Hgb 12.5 (12.0-16.0) g/dl Hct 37.2 (37.0-47.0) % MCV 87.5 (80.0-98.0) fL MCH 29.4 (27.0-33.0) pg MCHC 33.6 (31.0-35.0) g/dl RDW 13.4 (11.0-16.0) % Plt Count 273 (160-400) X10*3/uL MPV 8.9 L (9.4-12.3) fL Immature Gran % (Auto) 0.3 (0.0-0.4) % Neut % (Auto) 65.4 (45-73) % Lymph % (Auto) 24.9 (20-40) % [place] % (Auto) 6.0 (2-11) % Eos % (Auto) 2.6 (0-4) % Baso % (Auto) 0.8 (0-2) % Lymph # (Auto) 1.9 (1.2-4.9) X10*3/uL [place] # (Auto) 0.5 (0.1-1.2) X10*3/uL Eos # (Auto) 0.2 (0.0-0.4) X10*3/uL Baso # (Auto) 0.1 (0.0-0.2) X10*3/uL Abs Immat Gran (auto) 0.02 (0.00-0.03) X10*3/uL Absolute Neuts (auto) 5.1 (2.0-8.3) x10*3/uL Absolute Nucleated RBC 0.000 (0.0-0.012) X10*3/uL Nucleated RBC % (auto) 0.0 (0.0-0.2) /100WBC Sodium (135-145) mmol/L Potassium (3.3-5.1) mmol/L Chloride (96-108) mmol/L Carbon Dioxide (22-29) mmol/L Anion Gap (12-20) BUN (9-16) mg/dL Creatinine (0.5-1.4) mg/dL Estim Creat Clear Calc Estimated GFR Random Glucose (60-115) mg/dL Calcium (8.4-10.2) mg/dL Total Bilirubin (0.0-1.0) mg/dL Direct Bilirubin (0.0-0.5) mg/dL AST (5-31) U/L ALT (0-31) U/L Alkaline Phosphatase (39-117) U/L Total Protein (6.5-8.0) g/dL Albumin (3.5-5.0) g/dL Urine Color YELLOW Urine Appearance CLEAR Urine pH 5.5 (5.0-8.0) Ur Specific Bureau <= 1.005 (1.005-1.025) Urine Protein NEG (NEG-TRACE) MG/DL Urine Glucose (UA) NEG (NEG) MG/DL Urine Ketones NEG (NEG) MG/DL Urine Blood NEG (NEG) Urine Nitrite NEG (NEG) Ur Leukocyte Esterase NEG (NEG) Urine Opiates Screen Not Detected (Not Detect) Urine Fentanyl Screen Not Detected (Not Detect) Ur Barbiturates Screen Not Detected (Not Detect) Ur Phencyclidine Scrn Not Detected (Not Detect) Ur Amphetamines Screen POSITIVE H (Not Detect) U Benzodiazepines Scrn Not Detected (Not Detect) Urine Cocaine Screen Not Detected (Not Detect) U Marijuana (THC) Screen Not Detected (Not Detect) 05/26/22 Range/Units 16:30 WBC (4.8-10.8) X10*3/uL RBC (4.20-5.50) X10*6/uL Hgb (12.0-16.0) g/dl Hct (37.0-47.0) % MCV (80.0-98.0) fL MCH (27.0-33.0) pg MCHC (31.0-35.0) g/dl RDW (11.0-16.0) % Plt Count (160-400) X10*3/uL MPV (9.4-12.3) fL Immature Gran % (Auto) (0.0-0.4) % Neut % (Auto) (45-73) % Lymph % (Auto) (20-40) % [place] % (Auto) (2-11) % Eos % (Auto) (0-4) % Baso % (Auto) (0-2) % Lymph # (Auto) (1.2-4.9) X10*3/uL [place] # (Auto) (0.1-1.2) X10*3/uL Eos # (Auto) (0.0-0.4) X10*3/uL Baso # (Auto) (0.0-0.2) X10*3/uL Abs Immat Gran (auto) (0.00-0.03) X10*3/uL Absolute Neuts (auto) (2.0-8.3) x10*3/uL Absolute Nucleated RBC (0.0-0.012) X10*3/uL Nucleated RBC % (auto) (0.0-0.2) /100WBC Sodium 138 (135-145) mmol/L Potassium 5.0 (3.3-5.1) mmol/L Chloride 106 (96-108) mmol/L Carbon Dioxide 26 (22-29) mmol/L Anion Gap 11 L (12-20) BUN 14 (9-16) mg/dL Creatinine 0.86 (0.5-1.4) mg/dL Estim Creat Clear Calc 128.7 Estimated GFR > 60 Random Glucose 105 (60-115) mg/dL Calcium 9.7 (8.4-10.2) mg/dL Total Bilirubin 0.2 (0.0-1.0) mg/dL Direct Bilirubin < 0.2 (0.0-0.5) mg/dL AST 43 H (5-31) U/L ALT 37 H (0-31) U/L Alkaline Phosphatase 76 (39-117) U/L Total Protein 8.4 H (6.5-8.0) g/dL Albumin 4.6 (3.5-5.0) g/dL Urine Color Urine Appearance Urine pH (5.0-8.0) Ur Specific Bureau (1.005-1.025) Urine Protein (NEG-TRACE) MG/DL Urine Glucose (UA) (NEG) MG/DL Urine Ketones (NEG) MG/DL Urine Blood (NEG) Urine Nitrite (NEG) Ur Leukocyte Esterase (NEG) Urine Opiates Screen (Not Detect) Urine Fentanyl Screen (Not Detect) Ur Barbiturates Screen (Not Detect) Ur Phencyclidine Scrn (Not Detect) Ur Amphetamines Screen (Not Detect) U Benzodiazepines Scrn (Not Detect) Urine Cocaine Screen (Not Detect) U Marijuana (THC) Screen (Not Detect) Discharge Plan Discharge Clinical Impression: Normal exam, Elevated liver enzymes Patient Disposition: Home, Self-Care Additional Instructions: There were very minor elevations of AST and ALT which are not scary or dangerous, your doctor may want to recheck it in several months Blood count was normal kidney function was normal and the urinalysis was normal No sign of any dangerous or worrisome condition at this time follow routinely with your doctor Return any concerns Prescriptions: No Action cephalexin 500 mg capsule 500 mg PO QID 7 Days Qty: 28 0RF doxycycline hyclate 100 mg capsule 100 mg PO BID 7 Days Qty: 14 0RF ketorolac 10 mg tablet 10 mg PO TID PRN (Reason: pain) 5 Days Qty: 20 0RF Rx Instructions: Patient received Toradol 30 mg IV in the ED Interventions: ED Discharge Assessment Last Done: 05/26/22 17:37 Discharge Date/Time: 05/26/22 17:39
[2022-05-26 16:34] LABS: MANUAL DIFF FLAG NO
[2022-05-26 16:35] LABS: Basophils Absolute Auto 0.1 X10*3/uL (0.0-0.2); Basophils Percent Auto 0.8 % (0-2); Eosinophils Absolute Auto 0.2 X10*3/uL (0.0-0.4); Eosinophils Percent Auto 2.6 % (0-4); Hematocrit 37.2 % (37.0-47.0); Hemoglobin 12.5 g/dl (12.0-16.0); Imm Gran Abs Auto 0.02 X10*3/uL (0.00-0.03); Imm Gran Pct Auto 0.3 % (0.0-0.4); Lymphocytes Absolute Auto 1.9 X10*3/uL (1.2-4.9); Lymphocytes Percent Auto 24.9 % (20-40); Mean Corpuscular HGB Conc 33.6 g/dl (31.0-35.0); Mean Corpuscular Hemoglobin 29.4 pg (27.0-33.0); Mean Corpuscular Volume 87.5 fL (80.0-98.0); Mean Platelet Volume 8.9 fL (9.4-12.3); Monocytes Absolute Auto 0.5 X10*3/uL (0.1-1.2); Neutrophils Absolute Auto 5.1 x10*3/uL (2.0-8.3); Neutrophils Percent Auto 65.4 % (45-73); Platelet Count 273 X10*3/uL (160-400); Red Blood Count 4.25 X10*6/uL (4.20-5.50); Red Cell Distribution Width 13.4 % (11.0-16.0); White Blood Count 7.8 X10*3/uL (4.8-10.8)
[2022-05-26 16:58] LABS: Alanine Aminotransferase 37 U/L (0-31); Albumin Level 4.6 g/dL (3.5-5.0); Alkaline Phosphatase 76 U/L (39-117); Anion Gap 11 (12-20); Aspartate Amino Transferase 43 U/L (5-31); Bilirubin Direct < 0.2 mg/dL (0.0-0.5); Bilirubin Total 0.2 mg/dL (0.0-1.0); Blood Urea Nitrogen 14 mg/dL (9-16); Calcium 9.7 mg/dL (8.4-10.2); Carbon Dioxide 26 mmol/L (22-29); Chloride 106 mmol/L (96-108); Creatinine Clr Calc Pharmacy 128.7; Estimated Glomerular Filt Rate > 60; Glucose Random 105 mg/dL (60-115); Sodium 138 mmol/L (135-145); Total Protein 8.4 g/dL (6.5-8.0)
[2022-05-26 17:43] LABS: Amphetamine Screen Urine POSITIVE (Not Detect); Barbiturates, Urine Not Detected (Not Detect); Benzodiazepines Screen Urine Not Detected (Not Detect); Cannabinoid Screen Urine Not Detected (Not Detect); Cocaine Screen Urine Not Detected (Not Detect); Fentanyl, urine Not Detected (Not Detect); Opiate Screen Urine Not Detected (Not Detect); Phencyclidine Screen Urine Not Detected (Not Detect)
== END 2022-05-26 17:39 | disposition home or self-care (01) ==
PROVIDERS: Physician Assistant Medical; Emergency Provider Emergency Medicine
DX: Z71.1 Person with feared health complaint in whom no diagnosis is made (principal); R74.8 Abnormal levels of other serum enzymes; F17.200 Nicotine dependence, unspecified, uncomplicated; Z79.899 Other long term (current) drug therapy
CPT/HCPCS: 36415; 80048; 80076; 80307; 81003; 85025; 99283